=== PATIENT | female | born 1945 | race Caucasian/White ===

== ENCOUNTER 2016-07-16 08:19 | Emergency (ER) | payer OTHER ==
[~2016-07-16] VITALS: Ht 157.5 cm; Wt 67.0 kg
[~2016-07-16 08:19] MED LIST: ATOR80TA75 PO; BENA20TA48 PO; DOCU-144 PO; FAMO-95 PO; GLIP-95 PO; HYDR-3498 PO; LEVE-5 PO; METF500T4 PO; SITA25TA3 PO; TYL2 PO; [UNRECOGNIZED DRUG - CODE] TOP
[2016-07-16 08:25] VITALS: Ht 157.5 cm; Wt 67.0 kg
[2016-07-16] MEDS ORDERED: CEPH500C PO (09:13)
--- NOTE | 2016-07-16 09:16 | ERD ---
ER Documentation Chief Complaint Date/Time DATE: 07/16/16 TIME: 09:15 Chief Complaint PAIN WITH URINATION AND BLOOD IN URINE THIS MORNING HPI 70-year-old female presents the emergency department complaining of 1 day of dysuria, urinary frequency and then hematuria that began this morning. Patient denies fevers, chills, flank pain, vomiting. Patient has no significant suprapubic discomfort at this time. Patient has had previous episodes of cystitis and this feels very much the same. ROS All systems reviewed and are negative except as per history of present illness. Medications Home Meds Active Scripts Cephalexin* (Cephalexin*) 500 Mg Capsule, 500 MG PO Q6, #28 CAP Prov:ALMA QUIGLEY 07/16/16 Econazole Nitrate* (Spectazole* 1% Cream) 1 Applic Cr, 1 APPLIC TOP BID, #1 TUB 3 Refills Prov:CHAU SEGOVIA PA-C 09/01/15 Levetiracetam* (Keppra*) 500 Mg Tab, 500 MG PO BID, #30 TAB 1 Refill Prov:BARRY ZAPATA MD 06/22/15 Docusate Sodium* (Colace*) 100 Mg Cap, 100 MG PO HS, #10 CAP Prov:BARRY ZAPATA MD 06/22/15 Famotidine* (Pepcid* AC) 20 Mg Tab, 20 MG PO DAILY, #14 TAB Prov:BARRY ZAPATA MD 06/22/15 Acetaminophen-Codeine* (Acetaminophen-Cod #2*) 300-15 Mg Tab, 1 TAB PO Q4H Y for PAIN, #10 TAB Prov:BECKA PINZON PA-C 06/09/15 Hydrocodone Bit-Acetaminophen* ([place]*) 5-325 Mg Tab, 1 TAB PO Q4H Y for PAIN, # 20 TAB Prov:JONA RIVERA PA-C 05/02/15 Reported Medications Sitagliptin* (Januvia*) 25 Mg Tablet, 25 MG PO DAILY, #30 06/10/15 Atorvastatin* (Atorvastatin*) 80 Mg Tablet, 80 MG PO DAILY, #30 06/10/15 Benazepril Hcl* (Benazepril Hcl*) 20 Mg Tablet, 20 MG PO DAILY, #30 06/10/15 Metformin* (Glucophage*) 500 Mg Tab, 500 MG PO WITH MEALS, #120 06/10/15 Glipizide* (Glipizide*) 10 Mg Tablet, 10 MG PO BID, #60 06/10/15 Allergies Allergies: Coded Allergies: No Known Allergy (Unverified , 11/27/12) PMhx/Soc History of Surgery: Yes (hysterectomy, craniotomy 06/12/15 & 06/16/15 2t SDH.) Anesthesia Reaction: No Hx Neurological Disorder: No Hx Respiratory Disorders: No Hx Cardiac Disorders: Yes (htn, high cholesterol) Hx Psychiatric Problems: No Hx Miscellaneous Medical Probl: Yes (DM, HLD, osteopenia, R distal radius fx with ular styloid fx (healed)) Hx Alcohol Use: No Hx Substance Use: No Hx Tobacco Use: No Physical Exam Vitals Vital Signs Date Time Temp Pulse Resp B/P Pulse Ox O2 Delivery O2 Flow Rate FiO2 07/16/16 08:25 97.7 7 18 163/67 100 Physical Exam GENERAL: The patient is well developed and appropriate for usual state of health in no apparent distress HEENT: Pupils equal, round, and reactive to light. EOMI. There is no scleral icterus. NECK: C-spine is soft and supple, there is no meningismus. There is no cervical lymphadenopathy. LUNGS: Clear to auscultation bilaterally. There are no rales, wheezes or rhonchi. HEART: Regular rate and rhythm, no murmurs, clicks, rubs or gallops. Abdomen: Soft, nontender, nondistended. No significant suprapubic tenderness. No CVA tenderness. Procedures/MDM Patient was taken to a room, seen and examined. Urine was sent for urinalysis as well as urine culture which is pending Medical decision makin-year-old diabetic female presents the emergency department with what appears to be recurrent cystitis. Patient has no evidence of sepsis, dehydration or pyelonephritis. Patient will be treated with antibiotics and seems to be appropriate for outpatient care at this time Departure Diagnosis: Primary Impression: UTI (urinary tract infection) Condition: Stable Patient Instructions: Understanding Urinary Tract Infections (UTIs) Additional Instructions: Please see your doctor this week for a recheck. Return for any increased symptoms, problems or concerns. ALMA QUIGLEY Jul 16, 2016 09:16
[2016-07-16 09:21] LABS: URINE BLOOD (Dip) POC 3+ (NEGATIVE)
[2016-07-16 10:03] LABS: ADD UMIC YES; URINE BILIRUBIN (Dip) 1+ (NEGATIVE); URINE BLOOD (Dip) 3+ (NEGATIVE); URINE COLOR LT. RED (YELLOW); URINE KETONES (Dip) NEGATIVE (NEGATIVE); URINE LEUKOCYTE ESTERASE (Dip) 2+ (NEGATIVE); URINE NITRITE (Dip) NEGATIVE (NEGATIVE); URINE TOTAL PROTEIN (Dip) 2+ (NEGATIVE); URINE UROBILINOGEN (Dip) 0.2 E.U./dL (0.1-1.0)
[2016-07-16 10:42] LABS: ICTOTEST NEGATIVE (NEGATIVE)
[2016-07-16 10:48] LABS: BACTERIA,URINE FEW
== END 2016-07-16 10:10 | disposition home or self-care (01) ==
LOC: FTE 08:19
DX: N39.0 Urinary tract infection, site not specified (principal); I10 Essential (primary) hypertension; E11.9 Type 2 diabetes mellitus without complications; Z79.84 Long term (current) use of oral hypoglycemic drugs
CPT/HCPCS: 81001; 81003; 87086; 99283